=== PATIENT | male | born 1950 | race Caucasian/White ===

== ENCOUNTER 2024-02-21 13:19 | Emergency (ER) | payer MEDICARE, MEDICAID ==
[2024-02-21 13:34] VITALS: TEMP 98.7
[2024-02-21 15:50] LABS: BASOPHILS # (AUTO) 0.2 X10'3 (0-0.2); BASOPHILS % (AUTO) 1.6 % (0-1); EOSINOPHILS % (AUTO) 0.5 % (0-6); HEMATOCRIT 25.4 % (42.0-52.0); HEMOGLOBIN 7.6 g/dl (14.0-17.9); LYMPHOCYTES # (AUTO) 1.1 X10'3 (1.1-4.8); LYMPHOCYTES % (AUTO) 11.3 % (21-51); MEAN CORPUSCULAR HEMOGLOBIN 20.6 PG (27.0-31.0); MEAN CORPUSCULAR HGB CONC 29.8 g/dL (33.0-36.5); MEAN PLATELET VOLUME 6.9 FL (7.4-10.4); MONOCYTES # (AUTO) 0.3 X10'3 (0-0.9); MONOCYTES % (AUTO) 3.6 % (2-12); NEUTROPHILS # (AUTO) 7.9 X10'3 (1.8-7.7); PLATELET COUNT 641 X10'3 (140-440); RED BLOOD COUNT 3.69 X10'6 (4.70-6.10); RED CELL DISTRIBUTION WIDTH 20.7 % (11.5-14.5); WHITE BLOOD COUNT 9.5 X10'3 (4.5-11.0)
[2024-02-21 16:06] LABS: PLATELET ESTIMATE INCREASED
[2024-02-21 16:07] LABS: ELLIPTOCYTES 1+
[2024-02-21 16:08] LABS: POLYCHROMASIA FEW
[2024-02-21 16:09] LABS: ANISOCYTOSIS 3+; MICROCYTOSIS 2+
[2024-02-21 16:10] LABS: TARGET CELLS FEW
[2024-02-21 16:11] LABS: HYPOCHROMASIA 1+
[2024-02-21 17:14] LABS: ANION GAP 10 (8-16); BLOOD UREA NITROGEN 11 MG/DL (7-18); CALCIUM 7.9 MG/DL (8.5-10.1); CHLORIDE 109 MMOL/L (99-107); GLUCOSE 92 MG/DL (70-104); POTASSIUM 3.9 MMOL/L (3.5-5.1); SODIUM 142 MMOL/L (135-145); TOTAL CARBON DIOXIDE 22.9 MMOL/L (24-32); eGFR 73 ML/MIN
[2024-02-21 17:15] LABS: ALBUMIN 2.9 G/DL (3.4-5.0); PRO BRAIN NATRIURETIC PEPTIDE 253 PG/ML (0-125)
[2024-02-21] MEDS: morphine 2 MG/ML inj. syringe IV ONE (17:55)
[2024-02-21 18:37] LABS: ETHANOL 185 MG/DL (<10); PRO BRAIN NATRIURETIC PEPTIDE 259 PG/ML (0-125)
[2024-02-21] MEDS: morphine 2 MG/ML inj. syringe IV PRN ×2 (19:04→20:59)
[2024-02-21] MEDS: thiamine 100mg/ml 2ml inj. IV ONE (19:06)
[2024-02-21] MEDS: normal saline 1000ml 1,000 ML IV ONE (19:06)
[2024-02-21 19:10] LABS: BILIRUBIN,URINE NEGATIVE (Neg); CLARITY,URINE CLEAR (Clear); COLOR,URINE YELLOW (Yellow); GLUCOSE, URINE NEGATIVE (Neg); KETONES,URINE 15 mg/dl (Neg); LEUKOCYTE ESTERASE ,URINE NEGATIVE (Neg); NITRITES, URINE NEGATIVE (Neg); OCCULT BLOOD,URINE MODERATE (Neg); PROTEIN,URINE NEGATIVE (Neg); UROBILINOGEN,URINE 0.2 E.U/dL (0.2-1.0)
[2024-02-21 19:15] LABS: UA COLLECTION TYPE CLN CATCH MIDSTREAM
[2024-02-21 19:19] LABS: BACTERIA,URINE FEW /HPF (Neg); HYALINE CASTS 0-3 /LPF (NEGATIVE); MUCUS STRANDS MANY /LPF (Neg); SQUAMOUS EPITHELIAL CELL,UR FEW /LPF (FEW); WBC,URINE 0-4 /HPF (0-4)
[2024-02-21 19:25] LABS: URINE AMPHETAMINE SCREEN NEGATIVE (Neg); URINE BARBITUATE SCREEN NEGATIVE (Neg); URINE BENZODIAZEPINES SCREEN NEGATIVE (Neg); URINE CANNABINOID SCREEN NEGATIVE (Neg); URINE COCAINE SCREEN NEGATIVE (Neg); URINE METHADONE SCREEN NEGATIVE (Neg); URINE PHENCYCLIDINE SCREEN NEGATIVE (Neg)
[2024-02-21 22:30] LABS: ALANINE AMINOTRANSFERASE 19 U/L (12-78); ALBUMIN 2.7 G/DL (3.4-5.0); ALBUMIN/GLOBULIN RATIO 0.6 (1.1-1.5); ALKALINE PHOSPHATASE 328 IU/L (46-116); ASPARTATE AMINO TRANSFERASE 17 U/L (10-37); BILIRUBIN,DIRECT 0.2 MG/DL (0-0.3); BILIRUBIN,TOTAL 0.6 MG/DL (0.1-1.0); TOTAL PROTEIN 7.4 G/DL (6.4-8.2)
[2024-02-22 00:41] VITALS: BP 149/68; PULSE 78; RESP 14; O2SAT 100
== END 2024-02-22 00:43 | disposition home or self-care (01) ==
LOC: ER 13:20
DX: F10.129 Alcohol abuse with intoxication, unspecified (principal); R07.81 Pleurodynia; R79.89 Other specified abnormal findings of blood chemistry; Z59.00 Homelessness unspecified; Y90.9 Presence of alcohol in blood, level not specified
CPT/HCPCS: 36415; 70450; 71045; 80048; 80076; 80305; 80320; 81001; 83605; 83880; 84145; 84484; 85008; 85025; 87040; 93005; 96361; 96374; 96375; 96376; 99285; J2270; J3411; J7030

== ENCOUNTER 2024-02-26 21:25 | Inpatient (IN) | payer MEDICARE, MEDICAID ==
[~2024-02-26] VITALS: Ht 177.8 cm; Wt 79.5 kg
[2024-02-26 22:26] LABS: BASOPHILS # (AUTO) 0.1 X10'3 (0-0.2); BASOPHILS % (AUTO) 1.2 % (0-1); EOSINOPHILS # (AUTO) 0.1 X10'3 (0-0.9); EOSINOPHILS % (AUTO) 1.2 % (0-6); HEMATOCRIT 24.7 % (42.0-52.0); HEMOGLOBIN 7.2 g/dl (14.0-17.9); LYMPHOCYTES # (AUTO) 1.2 X10'3 (1.1-4.8); LYMPHOCYTES % (AUTO) 16.3 % (21-51); MEAN CORPUSCULAR HEMOGLOBIN 20.4 PG (27.0-31.0); MEAN CORPUSCULAR HGB CONC 29.4 g/dL (33.0-36.5); MEAN CORPUSCULAR VOLUME 69.6 FL (78-98); MEAN PLATELET VOLUME 6.8 FL (7.4-10.4); MONOCYTES # (AUTO) 0.7 X10'3 (0-0.9); MONOCYTES % (AUTO) 9.1 % (2-12); NEUTROPHILS # (AUTO) 5.3 X10'3 (1.8-7.7); NEUTROPHILS % (AUTO) 72.2 % (42-75); PLATELET COUNT 547 X10'3 (140-440); RED BLOOD COUNT 3.54 X10'6 (4.70-6.10); RED CELL DISTRIBUTION WIDTH 21.4 % (11.5-14.5); WHITE BLOOD COUNT 7.3 X10'3 (4.5-11.0)
[2024-02-26 22:29] LABS: ALBUMIN 2.6 G/DL (3.4-5.0); ANION GAP 8 (8-16); BLOOD UREA NITROGEN 7 MG/DL (7-18); BUN/CREATININE RATIO 8.1 (10.0-20.0); CALCIUM 8.2 MG/DL (8.5-10.1); CHLORIDE 100 MMOL/L (99-107); CREATININE 0.86 MG/DL (0.60-1.10); GLUCOSE 107 MG/DL (70-104); POTASSIUM 4.1 MMOL/L (3.5-5.1); SODIUM 135 MMOL/L (135-145); TOTAL CARBON DIOXIDE 26.7 MMOL/L (24-32); eCRCL 79 ML/MIN; eGFR 87 ML/MIN
[2024-02-26 22:33] LABS: APTT 24 SECONDS (22-32); PROTHROMBIN TIME 10.7 SECONDS (9.0-12.0)
[2024-02-27] VITALS (10 sets, daily range): BP systolic 148–178; BP diastolic 67–103; PULSE 79–95; RESP 16–21; TEMP 97–99.2; O2SAT 95–98
[2024-02-27] MEDS ORDERED: morphine 2 MG/ML inj. syringe IV PRN (00:20)
[2024-02-27] MEDS ORDERED: mag hydrox/Alum hydrox/simeth 30ml oral suspension PO PRN (00:20)
[2024-02-27] MEDS ORDERED: magnesium hydroxide 30ml (MOM) UD suspension PO PRN (00:20)
[2024-02-27] MEDS ORDERED: acetaminophen 325mg tablet PO PRN (00:20)
[2024-02-27 01:09] LABS: ANISOCYTOSIS 3+; MICROCYTOSIS 2+; PLATELET ESTIMATE INCREASED
[2024-02-27 01:10] LABS: ELLIPTOCYTES FEW; HYPOCHROMASIA 1+; POLYCHROMASIA FEW
[2024-02-27 01:38] LABS: BILIRUBIN,URINE NEGATIVE (Neg); CLARITY,URINE CLEAR (Clear); COLOR,URINE YELLOW (Yellow); GLUCOSE, URINE NEGATIVE (Neg); KETONES,URINE TRACE mg/dl (Neg); LEUKOCYTE ESTERASE ,URINE NEGATIVE (Neg); NITRITES, URINE NEGATIVE (Neg); OCCULT BLOOD,URINE SMALL (Neg); PH,URINE 7.5 (4.8-8.0); PROTEIN,URINE NEGATIVE (Neg); UROBILINOGEN,URINE 0.2 E.U/dL (0.2-1.0)
[2024-02-27 01:42] LABS: UA COLLECTION TYPE VOIDED
[2024-02-27 01:44] LABS: SQUAMOUS EPITHELIAL CELL,UR FEW /LPF (FEW)
[2024-02-27 01:45] LABS: BACTERIA,URINE NONE SEEN /HPF (Neg); WBC,URINE 0-4 /HPF (0-4)
[2024-02-27] MEDS: normal saline 1000ml 1,000 ML IV SCH (04:40)
[2024-02-27] MEDS: amLODIPine 5mg tablet PO ONE (04:40)
[2024-02-27] MEDS: ondansetron/PF 4mg/2ml inj IV PRN (04:41)
[2024-02-27] MEDS: morphine 2 MG/ML inj. syringe IV PRN (04:42)
[2024-02-27] MEDS ORDERED: ASPI-611 PO (06:29)
[2024-02-27] MEDS ORDERED: POTASSIUM PO (06:31)
[2024-02-27] MEDS ORDERED: LORazepam 2 mg/ml vial IV PRN (07:20)
[2024-02-27] MEDS ORDERED: haloperidol lactate 5mg/ml inj IM PRN (07:20)
[2024-02-27] MEDS ORDERED: dextrose 50%-water 50ml dispensing syringe IV PRN (07:20)
[2024-02-27] MEDS ORDERED: haloperidol 5mg tablet PO PRN (07:20)
[2024-02-27] MEDS: multivitamins, therapeutics tablet PO SCH (07:43)
[2024-02-27] MEDS: HYDROcodone/acetaminophen 10/325mg tab PO PRN ×2 (07:43→11:40)
[2024-02-27] MEDS: thiamine 100mg/ml 2ml inj. IV SCH (08:28)
[2024-02-27 08:32] LABS: ABSOLUTE RETICS # 105300 /CUMM (23000-93000); BASOPHILS # (AUTO) 0.1 X10'3 (0-0.2); BASOPHILS % (AUTO) 0.8 % (0-1); EOSINOPHILS # (AUTO) 0.1 X10'3 (0-0.9); HEMATOCRIT 29.8 % (42.0-52.0); HEMOGLOBIN 9.4 g/dl (14.0-17.9); LYMPHOCYTES # (AUTO) 1.6 X10'3 (1.1-4.8); LYMPHOCYTES % (AUTO) 22.5 % (21-51); MEAN CORPUSCULAR HGB CONC 31.5 g/dL (33.0-36.5); MEAN CORPUSCULAR VOLUME 72.8 FL (78-98); MONOCYTES # (AUTO) 0.7 X10'3 (0-0.9); NEUTROPHILS # (AUTO) 4.6 X10'3 (1.8-7.7); NEUTROPHILS % (AUTO) 64.7 % (42-75); PLATELET COUNT 552 X10'3 (140-440); RED BLOOD COUNT 4.09 X10'6 (4.70-6.10); RED CELL DISTRIBUTION WIDTH 24.5 % (11.5-14.5); RETICULOCYTE % (AUTO) 2.6 % (0.5-1.5); WHITE BLOOD COUNT 7.1 X10'3 (4.5-11.0)
[2024-02-27] MEDS: losartan 25mg tablet PO SCH (09:21)
[2024-02-27 10:36] LABS: ALANINE AMINOTRANSFERASE 13 U/L (12-78); ALBUMIN 2.7 G/DL (3.4-5.0); ALBUMIN/GLOBULIN RATIO 0.6 (1.1-1.5); ALKALINE PHOSPHATASE 251 IU/L (46-116); ANION GAP 6 (8-16); ASPARTATE AMINO TRANSFERASE 18 U/L (10-37); BILIRUBIN,TOTAL 1.2 MG/DL (0.1-1.0); BLOOD UREA NITROGEN 7 MG/DL (7-18); BUN/CREATININE RATIO 7.9 (10.0-20.0); CALCIUM 8.1 MG/DL (8.5-10.1); CHLORIDE 103 MMOL/L (99-107); CREATININE 0.89 MG/DL (0.60-1.10); FERRITIN 30 NG/ML (26-388); GLUCOSE 115 MG/DL (70-104); MAGNESIUM 2.1 MG/DL (1.5-2.4); PHOSPHORUS 3.4 MG/DL (2.3-4.5); POTASSIUM 3.7 MMOL/L (3.5-5.1); SODIUM 135 MMOL/L (135-145); TOTAL CARBON DIOXIDE 25.7 MMOL/L (24-32); TOTAL PROTEIN 7.3 G/DL (6.4-8.2); eCRCL 76 ML/MIN; eGFR 84 ML/MIN
[2024-02-27 10:47] LABS: % IRON SATURATION 16 % (11-46); IRON 48 UG/DL (53-167); TOTAL IRON BINDING CAPACITY 292 UG/DL (259-388)
[2024-02-27] MEDS: folic acid 1mg/0.2ml inj IV SCH (12:47)
[2024-02-27] MEDS: sodium ferric gluc complex inj 125 MG in normal saline 100ml IV soln 100 ML IV SCH (14:56)
[2024-02-27] MEDS: LORazepam 1 MG tablet PO PRN (21:32)
[2024-02-28 06:36] VITALS: BP 122/76; PULSE 85; RESP 14; TEMP 97.4; O2SAT 96
[2024-02-28 07:41] LABS: BASOPHILS # (AUTO) 0.1 X10'3 (0-0.2); BASOPHILS % (AUTO) 0.9 % (0-1); EOSINOPHILS # (AUTO) 0.3 X10'3 (0-0.9); HEMATOCRIT 25.5 % (42.0-52.0); HEMOGLOBIN 7.6 g/dl (14.0-17.9); LYMPHOCYTES # (AUTO) 0.9 X10'3 (1.1-4.8); LYMPHOCYTES % (AUTO) 12.7 % (21-51); MEAN CORPUSCULAR HGB CONC 29.7 g/dL (33.0-36.5); MEAN PLATELET VOLUME 7.2 FL (7.4-10.4); MONOCYTES # (AUTO) 0.6 X10'3 (0-0.9); NEUTROPHILS # (AUTO) 5.3 X10'3 (1.8-7.7); NEUTROPHILS % (AUTO) 73.4 % (42-75); PLATELET COUNT 429 X10'3 (140-440); RED BLOOD COUNT 3.45 X10'6 (4.70-6.10); RED CELL DISTRIBUTION WIDTH 24.5 % (11.5-14.5); WHITE BLOOD COUNT 7.2 X10'3 (4.5-11.0)
[2024-02-28 07:45] VITALS: RESP 14; O2SAT 96
[2024-02-28 08:12] LABS: ALANINE AMINOTRANSFERASE 9 U/L (12-78); ALBUMIN 2.4 G/DL (3.4-5.0); ALBUMIN/GLOBULIN RATIO 0.6 (1.1-1.5); ALKALINE PHOSPHATASE 202 IU/L (46-116); ANION GAP 5 (8-16); ASPARTATE AMINO TRANSFERASE 12 U/L (10-37); BILIRUBIN,TOTAL 0.5 MG/DL (0.1-1.0); BLOOD UREA NITROGEN 12 MG/DL (7-18); CHLORIDE 106 MMOL/L (99-107); CREATININE 0.92 MG/DL (0.60-1.10); GLUCOSE 112 MG/DL (70-104); SODIUM 137 MMOL/L (135-145); TOTAL CARBON DIOXIDE 26.4 MMOL/L (24-32); TOTAL PROTEIN 6.6 G/DL (6.4-8.2); eCRCL 74 ML/MIN; eGFR 81 ML/MIN
[2024-02-28 09:39] LABS: ANISOCYTOSIS 3+; HYPOCHROMASIA 2+; MICROCYTOSIS 1+; PLATELET ESTIMATE NORMAL
[2024-02-28 12:34] VITALS: BP 136/44; PULSE 54; RESP 16; TEMP 97.8; O2SAT 94
[2024-02-28 18:00] VITALS: BP 145/85; PULSE 103; RESP 18; TEMP 98.7; O2SAT 95
[2024-02-28 19:38] LABS: HEMATOCRIT 27.2 % (42.0-52.0); HEMOGLOBIN 8.5 g/dl (14.0-17.9); MEAN CORPUSCULAR HEMOGLOBIN 22.9 PG (27.0-31.0); MEAN CORPUSCULAR HGB CONC 31.2 g/dL (33.0-36.5); MEAN CORPUSCULAR VOLUME 73.2 FL (78-98); MEAN PLATELET VOLUME 7.1 FL (7.4-10.4); PLATELET COUNT 472 X10'3 (140-440); RED BLOOD COUNT 3.71 X10'6 (4.70-6.10); RED CELL DISTRIBUTION WIDTH 24.6 % (11.5-14.5); WHITE BLOOD COUNT 8.5 X10'3 (4.5-11.0)
[2024-02-28 22:00] VITALS: BP_SYST 168; BP_SYST 173; BP_DIAS 70; BP_DIAS 82; BP_DIAS 91; PULSE 83; PULSE 85; PULSE 86; RESP 18; TEMP 97.9; O2SAT 96
[2024-02-29 03:42] LABS: BASOPHILS # (AUTO) 0.1 X10'3 (0-0.2); BASOPHILS % (AUTO) 1.1 % (0-1); EOSINOPHILS # (AUTO) 0.3 X10'3 (0-0.9); EOSINOPHILS % (AUTO) 4.2 % (0-6); HEMATOCRIT 24.3 % (42.0-52.0); HEMOGLOBIN 7.4 g/dl (14.0-17.9); LYMPHOCYTES # (AUTO) 1.3 X10'3 (1.1-4.8); LYMPHOCYTES % (AUTO) 21.1 % (21-51); MEAN CORPUSCULAR HEMOGLOBIN 22.4 PG (27.0-31.0); MEAN CORPUSCULAR HGB CONC 30.5 g/dL (33.0-36.5); MEAN CORPUSCULAR VOLUME 73.6 FL (78-98); MEAN PLATELET VOLUME 7.3 FL (7.4-10.4); MONOCYTES # (AUTO) 0.6 X10'3 (0-0.9); NEUTROPHILS % (AUTO) 63.6 % (42-75); PLATELET COUNT 380 X10'3 (140-440); RED BLOOD COUNT 3.31 X10'6 (4.70-6.10); RED CELL DISTRIBUTION WIDTH 23.9 % (11.5-14.5); WHITE BLOOD COUNT 6.3 X10'3 (4.5-11.0)
[2024-02-29 03:57] LABS: ALANINE AMINOTRANSFERASE 12 U/L (12-78); ALBUMIN 2.3 G/DL (3.4-5.0); ALBUMIN/GLOBULIN RATIO 0.5 (1.1-1.5); ALKALINE PHOSPHATASE 198 IU/L (46-116); ANION GAP 6 (8-16); ASPARTATE AMINO TRANSFERASE 8 U/L (10-37); BILIRUBIN,TOTAL 0.3 MG/DL (0.1-1.0); BLOOD UREA NITROGEN 12 MG/DL (7-18); BUN/CREATININE RATIO 9.8 (10.0-20.0); CHLORIDE 102 MMOL/L (99-107); CREATININE 1.22 MG/DL (0.60-1.10); GLUCOSE 133 MG/DL (70-104); POTASSIUM 3.8 MMOL/L (3.5-5.1); SODIUM 134 MMOL/L (135-145); TOTAL CARBON DIOXIDE 25.8 MMOL/L (24-32); TOTAL PROTEIN 6.6 G/DL (6.4-8.2); eCRCL 56 ML/MIN; eGFR 58 ML/MIN
[2024-02-29 06:00] VITALS: BP 154/83; PULSE 83; RESP 18; TEMP 98.1; O2SAT 96
[2024-02-29 08:00] VITALS: BP_SYST 166; BP_SYST 179; BP_DIAS 84; BP_DIAS 86; PULSE 89; PULSE 90
[2024-02-29 10:00] VITALS: BP 150/77; PULSE 89; RESP 18; TEMP 96.9; O2SAT 96
[2024-02-29 11:25] LABS: HEMATOCRIT 26.6 % (42.0-52.0); HEMOGLOBIN 8.1 g/dl (14.0-17.9); MEAN CORPUSCULAR HEMOGLOBIN 22.4 PG (27.0-31.0); MEAN CORPUSCULAR HGB CONC 30.6 g/dL (33.0-36.5); MEAN CORPUSCULAR VOLUME 73.4 FL (78-98); MEAN PLATELET VOLUME 6.9 FL (7.4-10.4); PLATELET COUNT 426 X10'3 (140-440); RED BLOOD COUNT 3.63 X10'6 (4.70-6.10); RED CELL DISTRIBUTION WIDTH 24.5 % (11.5-14.5); WHITE BLOOD COUNT 6.8 X10'3 (4.5-11.0)
[2024-02-29 18:00] VITALS: BP 147/76; PULSE 91; RESP 16; TEMP 98.6; O2SAT 97
[2024-02-29 19:59] LABS: HEMATOCRIT 26.5 % (42.0-52.0); HEMOGLOBIN 8.1 g/dl (14.0-17.9); MEAN CORPUSCULAR HEMOGLOBIN 22.6 PG (27.0-31.0); MEAN CORPUSCULAR HGB CONC 30.5 g/dL (33.0-36.5); MEAN CORPUSCULAR VOLUME 73.9 FL (78-98); MEAN PLATELET VOLUME 7.4 FL (7.4-10.4); PLATELET COUNT 421 X10'3 (140-440); RED BLOOD COUNT 3.59 X10'6 (4.70-6.10); WHITE BLOOD COUNT 7.1 X10'3 (4.5-11.0)
[2024-02-29 20:00] VITALS: BP_SYST 133; BP_SYST 136; BP_SYST 138; BP_DIAS 68; BP_DIAS 69; BP_DIAS 73; PULSE 78; PULSE 79; RESP 16; O2SAT 97
[2024-02-29] MEDS: traZODone 50mg tablet PO SCH (21:33)
[2024-02-29 22:00] VITALS: BP 139/75; PULSE 64; RESP 16; TEMP 98.3; O2SAT 95
[2024-03-01 06:00] VITALS: BP 149/82; PULSE 82; RESP 17; TEMP 96.9; O2SAT 97
[2024-03-01 06:36] LABS: BASOPHILS # (AUTO) 0.1 X10'3 (0-0.2); BASOPHILS % (AUTO) 1.4 % (0-1); EOSINOPHILS # (AUTO) 0.2 X10'3 (0-0.9); EOSINOPHILS % (AUTO) 3.6 % (0-6); HEMATOCRIT 25.1 % (42.0-52.0); HEMOGLOBIN 7.6 g/dl (14.0-17.9); LYMPHOCYTES # (AUTO) 1.2 X10'3 (1.1-4.8); LYMPHOCYTES % (AUTO) 21.7 % (21-51); MEAN CORPUSCULAR HEMOGLOBIN 22.5 PG (27.0-31.0); MEAN CORPUSCULAR HGB CONC 30.3 g/dL (33.0-36.5); MEAN CORPUSCULAR VOLUME 74.4 FL (78-98); MEAN PLATELET VOLUME 7.1 FL (7.4-10.4); MONOCYTES # (AUTO) 0.7 X10'3 (0-0.9); MONOCYTES % (AUTO) 11.6 % (2-12); NEUTROPHILS # (AUTO) 3.5 X10'3 (1.8-7.7); NEUTROPHILS % (AUTO) 61.7 % (42-75); PLATELET COUNT 363 X10'3 (140-440); RED BLOOD COUNT 3.38 X10'6 (4.70-6.10); RED CELL DISTRIBUTION WIDTH 25.2 % (11.5-14.5); WHITE BLOOD COUNT 5.8 X10'3 (4.5-11.0)
[2024-03-01 06:49] LABS: ALANINE AMINOTRANSFERASE 10 U/L (12-78); ALBUMIN 2.4 G/DL (3.4-5.0); ALBUMIN/GLOBULIN RATIO 0.6 (1.1-1.5); ALKALINE PHOSPHATASE 183 IU/L (46-116); ANION GAP 6 (8-16); ASPARTATE AMINO TRANSFERASE 1 U/L (10-37); BILIRUBIN,TOTAL 0.2 MG/DL (0.1-1.0); BLOOD UREA NITROGEN 9 MG/DL (7-18); BUN/CREATININE RATIO 10.1 (10.0-20.0); CALCIUM 8.2 MG/DL (8.5-10.1); CHLORIDE 102 MMOL/L (99-107); CREATININE 0.89 MG/DL (0.60-1.10); GLUCOSE 113 MG/DL (70-104); POTASSIUM 3.7 MMOL/L (3.5-5.1); SODIUM 133 MMOL/L (135-145); TOTAL CARBON DIOXIDE 25.1 MMOL/L (24-32); TOTAL PROTEIN 6.7 G/DL (6.4-8.2); eCRCL 76 ML/MIN; eGFR 84 ML/MIN
[2024-03-01 07:05] LABS: ANISOCYTOSIS 3+; MICROCYTOSIS 1+; PLATELET ESTIMATE NORMAL
[2024-03-01 07:06] LABS: HYPOCHROMASIA 1+; POIKILOCYTOSIS FEW
[2024-03-01 08:00] VITALS: BP_SYST 135; BP_SYST 137; BP_SYST 141; BP_DIAS 72; BP_DIAS 76; BP_DIAS 77; PULSE 88; PULSE 94; PULSE 95
[2024-03-01 10:00] VITALS: BP 141/76; PULSE 88; RESP 22; TEMP 97.2; O2SAT 97
[2024-03-01 12:09] LABS: HEMATOCRIT 26.2 % (42.0-52.0); HEMOGLOBIN 7.8 g/dl (14.0-17.9); MEAN CORPUSCULAR HEMOGLOBIN 22.4 PG (27.0-31.0); MEAN CORPUSCULAR HGB CONC 29.6 g/dL (33.0-36.5); MEAN CORPUSCULAR VOLUME 75.5 FL (78-98); MEAN PLATELET VOLUME 7.4 FL (7.4-10.4); PLATELET COUNT 368 X10'3 (140-440); RED BLOOD COUNT 3.47 X10'6 (4.70-6.10); RED CELL DISTRIBUTION WIDTH 25.3 % (11.5-14.5); WHITE BLOOD COUNT 7.1 X10'3 (4.5-11.0)
[2024-03-01 19:00] VITALS: BP_SYST 149; BP_SYST 151; BP_SYST 153; BP_DIAS 66; BP_DIAS 83; BP_DIAS 85; PULSE 75; PULSE 77; PULSE 83
[2024-03-01 19:27] LABS: HEMATOCRIT 28.5 % (42.0-52.0); HEMOGLOBIN 8.6 g/dl (14.0-17.9); MEAN CORPUSCULAR HEMOGLOBIN 22.7 PG (27.0-31.0); MEAN CORPUSCULAR HGB CONC 30.2 g/dL (33.0-36.5); MEAN CORPUSCULAR VOLUME 75.1 FL (78-98); MEAN PLATELET VOLUME 7.2 FL (7.4-10.4); PLATELET COUNT 393 X10'3 (140-440); RED CELL DISTRIBUTION WIDTH 26.1 % (11.5-14.5); WHITE BLOOD COUNT 7.4 X10'3 (4.5-11.0)
[2024-03-02 06:00] VITALS: BP 148/64; PULSE 68; RESP 17; TEMP 97.9; O2SAT 95
[2024-03-02 06:16] LABS: BASOPHILS # (AUTO) 0.1 X10'3 (0-0.2); BASOPHILS % (AUTO) 1.1 % (0-1); EOSINOPHILS # (AUTO) 0.2 X10'3 (0-0.9); EOSINOPHILS % (AUTO) 2.5 % (0-6); HEMOGLOBIN 7.7 g/dl (14.0-17.9); LYMPHOCYTES # (AUTO) 1.1 X10'3 (1.1-4.8); LYMPHOCYTES % (AUTO) 17.8 % (21-51); MEAN CORPUSCULAR HEMOGLOBIN 23.4 PG (27.0-31.0); MEAN CORPUSCULAR HGB CONC 30.9 g/dL (33.0-36.5); MEAN CORPUSCULAR VOLUME 75.6 FL (78-98); MEAN PLATELET VOLUME 7.2 FL (7.4-10.4); MONOCYTES # (AUTO) 0.7 X10'3 (0-0.9); MONOCYTES % (AUTO) 11.2 % (2-12); NEUTROPHILS # (AUTO) 4.1 X10'3 (1.8-7.7); NEUTROPHILS % (AUTO) 67.4 % (42-75); PLATELET COUNT 323 X10'3 (140-440); RED BLOOD COUNT 3.31 X10'6 (4.70-6.10); RED CELL DISTRIBUTION WIDTH 27.3 % (11.5-14.5); WHITE BLOOD COUNT 6.1 X10'3 (4.5-11.0)
[2024-03-02 06:19] LABS: ALANINE AMINOTRANSFERASE 11 U/L (12-78); ALBUMIN 2.5 G/DL (3.4-5.0); ALBUMIN/GLOBULIN RATIO 0.6 (1.1-1.5); ALKALINE PHOSPHATASE 177 IU/L (46-116); ANION GAP 8 (8-16); ASPARTATE AMINO TRANSFERASE 10 U/L (10-37); BILIRUBIN,TOTAL 0.2 MG/DL (0.1-1.0); BLOOD UREA NITROGEN 10 MG/DL (7-18); BUN/CREATININE RATIO 12.3 (10.0-20.0); CALCIUM 8.4 MG/DL (8.5-10.1); CHLORIDE 103 MMOL/L (99-107); CREATININE 0.81 MG/DL (0.60-1.10); GLUCOSE 107 MG/DL (70-104); POTASSIUM 3.6 MMOL/L (3.5-5.1); SODIUM 135 MMOL/L (135-145); TOTAL CARBON DIOXIDE 24.2 MMOL/L (24-32); TOTAL PROTEIN 6.7 G/DL (6.4-8.2); eCRCL 84 ML/MIN; eGFR > 90 ML/MIN
[2024-03-02 07:33] LABS: PLATELET ESTIMATE NORMAL
[2024-03-02 07:37] LABS: HYPOCHROMASIA 2+; POLYCHROMASIA 2+
[2024-03-02 07:38] LABS: ANISOCYTOSIS 3+; ELLIPTOCYTES 1+; MICROCYTOSIS 1+; ROULEAUX 1+
[2024-03-02 08:25] VITALS: RESP 18
[2024-03-02 10:00] VITALS: PULSE 79; RESP 18; TEMP 97.9; O2SAT 93
[2024-03-02 14:00] VITALS: BP_SYST 133; BP_SYST 134; BP_SYST 138; BP_DIAS 61; BP_DIAS 70; BP_DIAS 74; PULSE 85; PULSE 89
[2024-03-02 18:00] VITALS: BP 154/81; PULSE 89; RESP 16; TEMP 98; O2SAT 97
[2024-03-02 22:00] VITALS: BP 115/73; PULSE 82; RESP 16; TEMP 98.5; O2SAT 97
[2024-03-03] VITALS (8 sets, daily range): BP systolic 144–172; BP diastolic 69–150; PULSE 74–96; RESP 16–22; TEMP 97.6–98.2; O2SAT 94–98
[2024-03-03 06:45] LABS: BASOPHILS # (AUTO) 0.1 X10'3 (0-0.2); EOSINOPHILS # (AUTO) 0.1 X10'3 (0-0.9); EOSINOPHILS % (AUTO) 2.6 % (0-6); HEMATOCRIT 26.2 % (42.0-52.0); MEAN CORPUSCULAR HEMOGLOBIN 23.2 PG (27.0-31.0); MEAN CORPUSCULAR HGB CONC 30.5 g/dL (33.0-36.5); MEAN CORPUSCULAR VOLUME 76.1 FL (78-98); MEAN PLATELET VOLUME 7.1 FL (7.4-10.4); MONOCYTES # (AUTO) 0.6 X10'3 (0-0.9); MONOCYTES % (AUTO) 12.8 % (2-12); NEUTROPHILS # (AUTO) 3.2 X10'3 (1.8-7.7); NEUTROPHILS % (AUTO) 64.6 % (42-75); PLATELET COUNT 300 X10'3 (140-440); RED BLOOD COUNT 3.45 X10'6 (4.70-6.10); RED CELL DISTRIBUTION WIDTH 28.7 % (11.5-14.5)
[2024-03-03 06:59] LABS: ALANINE AMINOTRANSFERASE 14 U/L (12-78); ALBUMIN 2.5 G/DL (3.4-5.0); ALBUMIN/GLOBULIN RATIO 0.6 (1.1-1.5); ALKALINE PHOSPHATASE 177 IU/L (46-116); ANION GAP 10 (8-16); ASPARTATE AMINO TRANSFERASE 11 U/L (10-37); BILIRUBIN,TOTAL 0.2 MG/DL (0.1-1.0); BLOOD UREA NITROGEN 8 MG/DL (7-18); BUN/CREATININE RATIO 10.4 (10.0-20.0); CALCIUM 8.3 MG/DL (8.5-10.1); CHLORIDE 103 MMOL/L (99-107); CREATININE 0.77 MG/DL (0.60-1.10); GLUCOSE 106 MG/DL (70-104); POTASSIUM 3.5 MMOL/L (3.5-5.1); SODIUM 136 MMOL/L (135-145); TOTAL CARBON DIOXIDE 23.5 MMOL/L (24-32); TOTAL PROTEIN 6.8 G/DL (6.4-8.2); eCRCL 88 ML/MIN; eGFR > 90 ML/MIN
[2024-03-03] MEDS ORDERED: iohexol 300mg/ml 100ml inj. ONE (15:00)
[2024-03-04 06:00] VITALS: BP 139/74; PULSE 80; RESP 18; TEMP 96.8; O2SAT 98
[2024-03-04 08:30] VITALS: RESP 18
[2024-03-04] MEDS: HYDROcodone/acetaminophen 5mg/325mg tablet PO PRN (08:31)
[2024-03-04 10:00] VITALS: BP_SYST 173; BP_SYST 178; BP_DIAS 101; BP_DIAS 94; PULSE 86; PULSE 92; RESP 18; TEMP 98; O2SAT 99
[2024-03-04] MEDS ORDERED: LOSA25TA41 PO (10:05)
[2024-03-04] MEDS ORDERED: MULT-25 PO (10:05)
[2024-03-04] MEDS: apixaban 5mg tablet PO ONE (13:27)
[2024-03-04] MEDS ORDERED: APIX5TAB3 PO (16:51)
== END 2024-03-04 15:08 | disposition home or self-care (01) | DRG 595 ==
LOC: ER 21:26 → UNDOADMIN 02-27 01:31 → ED HOLD 02-27 01:31 → ORTHO 4S 02-27 08:39 → ED HOLD 02-27 08:39 → ORTHO 4S 02-27 12:30
PROVIDERS: ADMIT Surgery Surgical Critical Care; ATTEND Family Medicine
PROC: 30233N1 Transfusion of Nonautologous Red Blood Cells into Peripheral Vein, Percutaneous Approach (ICD-10-PCS; principal; 2024-02-27)
PROC: BW281ZZ Computerized Tomography (CT Scan) of Head using Low Osmolar Contrast (ICD-10-PCS; 2024-03-03)
DX: C43.61 Malignant melanoma of right upper limb, including shoulder (principal); I26.99 Other pulmonary embolism without acute cor pulmonale; S22.41XA Multiple fractures of ribs, right side, initial encounter for closed fracture; D62 Acute posthemorrhagic anemia; Z59.00 Homelessness unspecified; I50.22 Chronic systolic (congestive) heart failure; F10.139 Alcohol abuse with withdrawal, unspecified; K74.60 Unspecified cirrhosis of liver; I11.0 Hypertensive heart disease with heart failure; Z87.891 Personal history of nicotine dependence; Z79.82 Long term (current) use of aspirin; C43.72 Malignant melanoma of left lower limb, including hip; X58.XXXA Exposure to other specified factors, initial encounter; Y93.89 Activity, other specified; Y92.9 Unspecified place or not applicable
CPT/HCPCS: 36415; 36430; 70460; 71045; 71101; 71260; 74177; 80048; 80053; 81001; 82728; 82948; 83010; 83540; 83550; 83605; 83735; 84100; 84466; 85008; 85025; 85027; 85045; 85610; 85730; 86880; 86885; 86900; 86901; 86920; 87040; 93005; 93306; 97110; 97116; 97161; 97530; 99285; A4649; A6213; A6223; A6253; A6258; A6446; A6449; G0378; J2270; J2405; J2916; J3411; J3490; J7030; P9016; Q9967

== ENCOUNTER 2025-05-11 18:57 | Emergency (ER) | payer MEDICARE, MEDICAID ==
[~2025-05-11] VITALS: Ht 175.3 cm; Wt 82.0 kg
--- NOTE | 2025-05-11 19:10 | ELECTROCARDIOGRAPH REPORT ---
[facility] Test Date: 2025-05-11 Test Time: 19:07:25 Pat Name: MARITA LOCKHART Department: EMERGENCY ROOM Room: Gender: M Airplane First Officer: PM : 1950 Requested By: RHIANNON COLUNGA Order Number: [id number] Reading MD: Measurements Intervals [place] Rate: 89 P: 138 WY: 167 QRS: -11 QRSD: 92 T: 115 QT: 358 QTc: 436 Interpretive Statements Sinus or ectopic atrial rhythm Abnormal R-wave progression, early transition Nonspecific T abnormalities, lateral leads Baseline wander in lead(s) V4 Please click the below link to view image of tracing.
[2025-05-11 19:17] VITALS: TEMP 98.7
[2025-05-11 19:37] LABS: MEAN PLATELET VOLUME 7.1 FL (7.4-10.4); RED CELL DISTRIBUTION WIDTH 14.2 % (11.5-14.5)
[2025-05-11 20:01] LABS: CREATININE 1.25 MG/DL (0.60-1.10); PRO BRAIN NATRIURETIC PEPTIDE 426 PG/ML (0-125); TOTAL CARBON DIOXIDE 22.8 MMOL/L (24-32); eCRCL 52 ML/MIN; eGFR 56 ML/MIN
--- NOTE | 2025-05-11 20:01 | RADIOLOGY REPORT ---
CHEST RADIOGRAPH Indication: CP Technique: Single frontal view of the chest was obtained Comparison: CT CT CHEST ABDOMEN PELVIS on DOS: 03/03/24, DI CHEST,SINGLE VIEW on DOS: 02/29/24, DI UNI R IBS WITH PA CHEST on DOS: 02/27/24, DI CHEST,SINGLE VIEW on DOS: 02/26/24, DI CHEST,SINGLE VIEW on DOS: 02/21/24 FINDINGS: Lines and Tubes: None Lungs: No focal consolidation. Pleura: No effusion. No pneumothorax. Cardiomediastinal contours: Unremarkable Bones: No acute osseous abnormality. IMPRESSION: No acute cardiopulmonary disease.
--- NOTE | 2025-05-11 20:18 | Physician Documentation ---
History of Present Illness ~ Chief Complaint: Weakness Stated Complaint: WEAKNESS Time Seen by MD: 20:16 OK to notify your PCP?: Yes Primary Medical Doctor: NONE HPI Patient presents to the emergency room feeling dehydrated. He was just discharged from his living facility and states that he feels like he is dehydrated. 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 Complaining of chronic pain. Medication Reconciliation Allergies: Coded Allergies: No Known Allergies (Unverified , 05/11/25) Past Medical History Past Medical History: *CANCER* Past Surgical History: noncontributory Patient History: Patient reports no known family medical history. Alcohol Use: Abuse Lives In: Homeless Review of Systems ROS All review of systems negative except as per HPI Physical Exam Vital Signs: Temperature: 98.7, Source: Oral, Heart Rate: 81, Respiratory Rate: 18, BP: 106/72, Pulse Oximetry: 95, Weight: 82.000 Physical Exam General: Patient is awake, alert, oriented x4 in no acute distress Head: Normocephalic and atraumatic. Eyes: Conjunctival normal. EOMI. PERRL. ENT: Mucous membranes moist. Presumed Skin cancer noted to be lateral to patient's right eye measuring 2 cm x 2 cm Neck: Supple, trachea is midline. Chest: Clear to auscultation bilaterally without rales, rhonchi, or wheezes. There is no accessory muscle use or retractions. Cardiac: RRR without murmurs, gallops, or rubs. Extremities: Tumor noted to patient's right forearm measuring 5 cm by 4 cm. Chronic wound to left medial calf measuring 10 cm x 5 cm with no associated cellulitis Progress Results/Orders Results/Orders Orders - ISMAEL LOPEZ MD Chest,Single View (05/11/25 19:44) Monitor (05/11/25 19:08) Saline Lock (05/11/25 19:08) Oxygen (05/11/25 19:08) Hs Troponin I W Calculations (05/11/25 21:08) Hs Troponin I W Calculations (05/11/25 22:08) Culture Blood (05/11/25 19:08) Urinalysis, Cult If Indicated (05/11/25 19:08) Straight Cath For Urine Sample (05/11/25 19:08) Normal Saline 1000ml (0.9% Sodium Chlori (05/11/25 20:25) Completed Orders - ISMAEL LOPEZ MD Chest,Single View (05/11/25 19:44) Cbc/Diff (05/11/25 19:08) BMP (05/11/25 19:08) PBNP (05/11/25 19:08) Electrocardiogram (05/11/25 19:08) Hs Troponin I W Calculations (05/11/25 19:08) Procalcitonin (05/11/25 19:08) Lacticsepsis (05/11/25 19:08) Hydrocodone/Apap 5/325mg Tab ([place] 5/32 (05/11/25 20:25) Vital Signs 05/11/25 19:17 Temp 98.7 Pulse 81 Resp 18 B/P (MAP) 106/72 Pulse Ox 95 Laboratory Tests Test 05/11/25 19:26 White Blood Count 8.1 Red Blood Count 3.98 L Hemoglobin 12.1 L Hematocrit 35.9 L Mean Corpuscular Volume 90.1 Mean Corpuscular Hemoglobin 30.5 Mean Corpuscular Hemoglobin Concent 33.8 Red Cell Distribution Width 14.2 Platelet Count 397 Mean Platelet Volume 7.1 L Neutrophils (%) (Auto) 72.9 Lymphocytes (%) (Auto) 15.8 L Monocytes (%) (Auto) 9.8 Eosinophils (%) (Auto) 0.7 Basophils (%) (Auto) 0.8 Neutrophils # (Auto) 5.9 Lymphocytes # (Auto) 1.3 Monocytes # (Auto) 0.8 Eosinophils # (Auto) 0.1 Basophils # (Auto) 0.1 CBC Comment Sodium Level 134 L Potassium Level 4.1 Chloride Level 102 Carbon Dioxide Level 22.8 L Anion Gap 9 Blood Urea Nitrogen 14 Creatinine 1.25 H Estimated GFR/1.73 m2 56 BUN/Creatinine Ratio 11.2 Glucose Level 97 Lactic Acid Level 1.1 Calcium Level 9.4 Troponin I High Sensitivity 8 Pro-B-Type Natriuretic Peptide 426 H Albumin 3.9 Procalcitonin < 0.05 Chemistry Comments EKG/XRAY/CT/US/VASC/MRI EKG : Additional Comment EKG interpreted by myself shows time of 1907, rate 89, sinus rhythm, left axis deviation, no ST changes Chest X-Ray : Additional Comments Exam: CHEST,SINGLE VIEW CHEST RADIOGRAPH Indication: CP Technique: Single frontal view of the chest was obtained Comparison: CT CT CHEST ABDOMEN PELVIS on DOS: 03/03/24, DI CHEST,SINGLE VIEW on DOS: 02/29/24, DI UNI RIBS WITH PA CHEST on DOS: 02/27/24, DI CHEST,SINGLE VIEW on DOS: 02/26/24, DI CHEST,SINGLE VIEW on DOS: 02/21/24 FINDINGS: Lines and Tubes: None Lungs: No focal consolidation. Pleura: No effusion. No pneumothorax. Cardiomediastinal contours: Unremarkable Bones: No acute osseous abnormality. IMPRESSION: No acute cardiopulmonary disease. Medical Decision Making Findings Patient presented to the emergency room with chronic wounds and cancer in his skin. We are able to obtain records from previous facility from April 10, 2025 where he was seen for his cancers tumor in his right upper extremity. He does not wish to have any treatment for this. Patient's left lower extremity wound is chronic in nature. Patient's pain is chronic in nature. Labs reassuring. Vital signs reassuring. He had not believe he is suffering from a medical emergency. Departure Disposition: HOME / SELF CARE / HOMELESS Impression: Primary Impression: General medical exam Condition: Stable Discharge Instructions: General Discharge Instructions Additional Instructions: Follow up with your doctor for your chronic pain management. Referrals: NO PRIMARY CARE PROVIDER (PCP) Education Educated: Patient Educated regarding: need for follow up Signature Scribe Signature: No scribe Attestation: The note accurately reflects work and decisions made by me.Ismael Lopez MD 05/11/25 20:38 ISMAEL LOPEZ MD May 11, 2025 20:18
[2025-05-11] MEDS: HYDROcodone/acetaminophen 5mg/325mg tablet PO ONE (20:51)
[2025-05-11] MEDS: normal saline 1000ml 1,000 ML IV ONE (20:54)
[2025-05-11 21:33] LABS: LEUKOCYTE ESTERASE ,URINE NEGATIVE (Neg); NITRITES, URINE NEGATIVE (Neg); OCCULT BLOOD,URINE NEGATIVE (Neg); UA COLLECTION TYPE URINAL
[2025-05-11 22:02] VITALS: BP 146/71; PULSE 87; RESP 18; O2SAT 98
== END 2025-05-11 22:04 | disposition home or self-care (01) ==
LOC: ER 18:58
DX: R53.1 Weakness (principal); G89.29 Other chronic pain; F10.10 Alcohol abuse, uncomplicated; Z59.00 Homelessness unspecified; Y90.9 Presence of alcohol in blood, level not specified
CPT/HCPCS: 36415; 71045; 80048; 81003; 83605; 83880; 84145; 84484; 85025; 87040; 93005; 96360; 99285; A6213; J7030

== ENCOUNTER 2025-05-12 09:11 | Emergency (ER) | payer MEDICARE, MEDICAID ==
[~2025-05-12] VITALS: Ht 177.8 cm; Wt 75.5 kg
[2025-05-12 09:14] VITALS: TEMP 98.8
--- NOTE | 2025-05-12 11:12 | Physician Documentation ---
History of Present Illness ~ Chief Complaint: See Chief Complaint Stated Complaint: "REFERRAL FOR A PROGRAM" Time Seen by MD: 10:52 OK to notify your PCP?: No Primary Medical Doctor: NONE HPI This 74-year-old male with a history of chronic wounds on his legs returns to the ED after a visit here last night requesting a social media editor consult. He states he is unable to care for himself is homeless has antalgic gait. Medication Reconciliation Allergies: Coded Allergies: No Known Allergies (Unverified , 05/11/25) Past Medical History Past Medical History: *CANCER* Past Surgical History: noncontributory Patient History: Patient reports no known family medical history. Alcohol Use: Abuse Lives In: Homeless Review of Systems All Other Systems at this time: Reviewed and Negative Physical Exam Vital Signs: Temperature: 98.8, Heart Rate: 89, Respiratory Rate: 17, BP: 128/65, Pulse Oximetry: 97, Weight: 75.500 Oxygen Flow Rate: 0 Physical Exam General: Alert, no apparent distress. Respiratory: Lungs clear, no respiratory distress. Psychiatric: Normal mood and affect. Skin: Normal color, warm and dry. No edema, no ecchymosis. Progress Results/Orders Results/Orders Orders - DOMENIC LAMA DANCE CHOREOGRAPHER Business Systems Administrator (05/12/25 11:08) Vital Signs 05/12/25 05/12/25 05/12/25 05/12/25 09:14 12:00 13:00 13:47 Temp 98.8 Pulse 89 85 78 90 Resp 17 16 16 B/P (MAP) 128/65 128/78 (95) 137/77 (97) 163/88 Pulse Ox 97 98 98 99 O2 Flow Rate 0 0 0 Medical Decision Making Findings This patient presents with chronic issues and being homeless. He was evaluated yesterday evening in the ED and ultimately discharged and has not incurred any other acute injuries or illnesses. At this time I am going to discharge the patient to the [facility] with a bus pass. According to the social media editor they are going offer the patient resources called [employer] [facility]. This is because the patient advise the older adult social work specialist that he is a and would meet criteria for housing. Differential Dx:Considerations: Include: anemia, CVA, dehydration, dysrhythmia, electrolyte imbalance, encephalopathy, Guillain-Mchenry, hypoglycemia, hypotension, hypovolemia, labyrinthitis, Meniere's disease, myasathenia gravis, myocardial infarction, pulmonary embolus, renal failure, respiratory failure, TIA, VBI, vertigo central, vertigo peripheral, vestibular neuronitis, other Departure Disposition: 01 HOME / SELF CARE / HOMELESS Impression: Primary Impression: Homeless Additional Impression: Generalized weakness Condition: Stable Additional Instructions: provided bus pass , advise to go to [facility] and seek local housing resources Referrals: NO PRIMARY CARE PROVIDER (PCP) Education Educated: Patient Educated regarding: diagnosis Signature Scribe Signature: f Attestation: Scribed for Domenic Lama Water Pollution Scientist by Domenic Fragoso NP . 05/12/25 11:11 DOMENIC LAMA NP May 12, 2025 11:12
[2025-05-12 13:47] VITALS: BP 163/88; PULSE 90; RESP 16; O2SAT 99
== END 2025-05-12 13:49 | disposition home or self-care (01) ==
LOC: ER 09:12
DX: R53.1 Weakness (principal); F10.10 Alcohol abuse, uncomplicated; Z59.00 Homelessness unspecified; Y90.9 Presence of alcohol in blood, level not specified
CPT/HCPCS: 99281; A6253; A6258; A6449